=== PATIENT | female | born 1955 | race Caucasian/White ===

== ENCOUNTER → 2017-07-29 | Outpatient (CLI) | payer OTHER ==
[~2017-07-29] MED LIST: CELECOXIB200 MG PO; DESYREL50 MG; HORIZANT600 MG PO; MOVANTIK25 MG; OXYCONTIN 20MG20 M1; PERCOCET10 PO; STIOLTO RESPIMAT4 GM
== END | disposition home or self-care (01) ==
LOC: CLAB 15:42
DX: Z01.812 Encounter for preprocedural laboratory examination (principal)
CPT/HCPCS: 87070; 87086